=== PATIENT | female | born 1960 | race Caucasian/White ===

== ENCOUNTER 2017-09-03 11:34 | Day surgery (SDC) | payer OTHER ==
[~2017-09-03 11:34] MED LIST: ATROPINE 1 MG/10 ML SYRINGE IV; DIPHENHYDRAMINE 50 MG INJ IV; EPHEDrine SULFATE 50 MG/5 ML SYG IV; FENTAnyl 50 MCG/ML VIAL IV; HYDROmorphONE (0.2 MG/ML) 10ML SYG IV; LABETALOL HCL 20MG INJ IV; MEPERIDINE 25 MG INJ IV; MIDAZOLAM 1 MG/ML 2 ML INJ IV; ONDANSETRON 4 MG INJ IV; OXYCODONE/ACETAMINOPHEN (5/325) TAB PO; PROPOFOL 200 MG INJ; hydrALAzine 20 MG INJ IV; morphine (1 MG/ML) 10ML SYRINGE IV
[2017-09-03] MEDS ORDERED: ROCURONIUM 50 MG INJ (14:47)
[2017-09-03] MEDS ORDERED: PROPOFOL 20 ML (14:47)
[2017-09-03] MEDS ORDERED: NEOSTIGMINE 3 MG/3 ML SYRINGE (14:47)
[2017-09-03] MEDS ORDERED: GLYCOPYRROLATE 0.4 MG INJ (14:47)
[2017-09-03] MEDS ORDERED: MIDAZOLAM 1 MG/ML 2 ML INJ (14:48)
[2017-09-03] MEDS: BUPIVACAINE 0.5% (SDV) 30 ML INJ (15:16)
[2017-09-03] MEDS: HYDROmorphONE (0.2 MG/ML) 10ML SYG IV ×3 (16:09→16:27)
== END 2017-09-03 17:35 | disposition home or self-care (01) ==
LOC: SDS 11:34
DX: M65.4 Radial styloid tenosynovitis [de Quervain] (principal); I10 Essential (primary) hypertension; E78.5 Hyperlipidemia, unspecified; E03.9 Hypothyroidism, unspecified
CPT/HCPCS: 25000; 88305